=== PATIENT | female | born 1945 | race Caucasian/White ===

== ENCOUNTER → 2016-05-30 | Outpatient (REF) | LOC: LAB 11:47 | DX: I25.10 Atherosclerotic heart disease of native coronary artery without angina pectoris (principal); E11.9 Type 2 diabetes mellitus without complications ==

== ENCOUNTER → 2016-09-28 | Outpatient (REF) | LOC: LAB 10:52 | DX: E11.9 Type 2 diabetes mellitus without complications (principal) ==